=== PATIENT | female | born 1995 | race Two or more races ===

== ENCOUNTER 2018-06-03 21:59 | Emergency (ER) | payer SELFPAY ==
[2018-06-03] MEDS ORDERED: Sodium Chloride 0.9% 1,000 ML IV ONE (22:56)
[2018-06-03] MEDS ORDERED: Metoclopramide 10 MG/2 ML SDV IVPUSH ONE (22:56)
[2018-06-03] MEDS ORDERED: Ketorolac 30 MG/ML SDV IVPUSH ONE (22:56)
[2018-06-03] MEDS ORDERED: Aluminum Hydroxide/Magnesium Hydroxide Susp 30 ML Cup PO STA (22:57)
[2018-06-03] MEDS ORDERED: Lidocaine 2% Viscous Solution 15 ML Cup PO ONE (22:58)
--- NOTE | 2018-06-03 23:02 | EDM.PDOC ---
ED HPI GENERAL MEDICAL PROBLEM - General Stated Complaint: NAUSEA,FAINT,HEADACHE,ABD PAIN Time Seen by Provider: 06/03/18 22:35 Source of Information: Reports: Patient, Family History Limitations: Reports: No Limitations - History of Present Illness INITIAL COMMENTS - FREE TEXT/NARRATIVE: c/o epigastric pain x 2d 2d ago pt had epigastric pain and bloating, Gas X helped a little today with N, ate [employer] food for supper (FF, 3 chicken strips) and had inc 'd N, vomited later no f/c/d youngest is 3 yo, has had HAs since last , less than 1x qmo, usually takes APAP and ibuprofen - Related Data Allergies Allergy/AdvReac Type Severity Reaction Status Date / Time No Known Allergies Allergy Verified 06/03/18 23:28 Home Meds: Home Meds Metoclopramide HCl 10 mg PO Q6H PRN #10 tablet 06/03/18 [Rx] Omeprazole 20 mg PO DAILY #10 cap.sr 06/03/18 [Rx] ED ROS GENERAL - Review of Systems Review Of Systems: See Below Constitutional: Reports: No Symptoms HEENT: Reports: No Symptoms Respiratory: Reports: No Symptoms Cardiovascular: Reports: No Symptoms Endocrine: Reports: No Symptoms GI/Abdominal: Reports: No Symptoms : Reports: No Symptoms Musculoskeletal: Reports: No Symptoms Skin: Reports: No Symptoms Neurological: Reports: Headache Psychiatric: Reports: No Symptoms Hematologic/Lymphatic: Reports: No Symptoms Immunologic: Reports: No Symptoms ED EXAM, GENERAL - Physical Exam Exam: See Below Exam Limited By: No Limitations General Appearance: Alert, WD/WN, No Apparent Distress, Other (alert, conversant , overhead lights on, holding forehead in each hand) Eye Exam: Bilateral Eye: EOMI, Normal Inspection, PERRL Ears: Normal External Exam Nose: Normal Inspection, Normal Mucosa, No Blood Throat/Mouth: Normal Inspection, Normal Lips, Normal Teeth, Normal Gums, Normal Oropharynx, Normal Voice, No Airway Compromise Head: Atraumatic, Normocephalic Neck: Normal Inspection, Supple, Non-Tender, Full Range of Motion Respiratory/Chest: No Respiratory Distress, Lungs Clear, Normal Breath Sounds, No Accessory Muscle Use, Chest Non-Tender Cardiovascular: Regular Rate, Rhythm, No Edema, No Gallop, No JVD, No Murmur, No Rub GI/Abdominal: Soft, Non-Tender Back Exam: Normal Inspection, Full Range of Motion, NT Extremities: Normal Inspection, Normal Range of Motion, Non-Tender, No Pedal Edema Neurological: Alert, Oriented, CN II-XII Intact, Normal Cognition, No Motor/ Sensory Deficits Psychiatric: Normal Affect, Normal Mood Skin Exam: Warm, Dry, Intact, Normal Color, No Rash Lymphatic: No Adenopathy Course - Vital Signs Last Recorded V/S: Last Vital Signs Temp 36.8 C 06/03/18 22:20 Pulse 81 06/03/18 22:20 Resp 18 06/03/18 22:20 BP 106/66 06/03/18 22:20 Pulse Ox 100 06/03/18 22:20 - Orders/Labs/Meds Orders: Active Orders 24 hr Category Date Time Status Sodium Chloride 0.9% [Normal Saline] 1,000 ml Med 06/03/18 22:56 Ordered IV .BOLUS Medication Orders Sodium Chloride (Normal Saline) 1,000 mls @ 999 mls/hr IV .BOLUS ONE Stop: 06/03/18 23:56 Last Admin: 06/03/18 23:05 Dose: 999 mls/hr Meds: Medications Generic Name Dose Route Start Last Admin Trade Name Freq PRN Reason Stop Dose Admin Sodium Chloride 1,000 mls @ 999 mls/hr 06/03/18 22:56 06/03/18 23:05 Normal Saline IV 06/03/18 23:56 999 mls/hr .BOLUS ONE Administration Discontinued Medications Generic Name Dose Route Start Last Admin Trade Name Freq PRN Reason Stop Dose Admin Al Hydroxide/Mg Hydroxide 30 ml 06/03/18 22:57 06/03/18 23:12 Mag-Al Susp PO 06/03/18 22:58 30 ml NOW STA Administration Ketorolac Tromethamine 30 mg 06/03/18 22:56 06/03/18 23:12 Toradol IVPUSH 06/03/18 22:57 30 mg ONETIME ONE Administration Lidocaine HCl 15 ml 06/03/18 22:58 06/03/18 23:12 Xylocaine 2% Viscous PO 06/03/18 22:59 15 ml ONETIME ONE Administration Metoclopramide HCl 10 mg 06/03/18 22:56 06/03/18 23:12 Reglan IVPUSH 06/03/18 22:57 10 mg ONETIME ONE Administration - Re-Assessments/Exams Free Text/Narrative Re-Assessment/Exam: 06/03/18 23:41 feeling quite a bit better after NS, Toradol IV and Reglan IV. Pain down to 2/10 , N gone. Departure - Departure Time of Disposition: 23:41 Disposition: Home, Self-Care 01 Condition: Good Clinical Impression: Dyspepsia, Tension headache - Discharge Information *PRESCRIPTION DRUG MONITORING PROGRAM REVIEWED*: Not Applicable *COPY OF PRESCRIPTION DRUG MONITORING REPORT IN PATIENT YUVAL: Not Applicable Prescriptions: Metoclopramide HCl 10 mg PO Q6H PRN #10 tablet PRN Reason: Nausea Omeprazole 20 mg PO DAILY #10 cap.sr Instructions: Tension Headache, Adult, Gastroesophageal Reflux Disease, Adult Referrals: PCP,Not In Area [Primary Care Provider] - Additional Instructions: To decrease acid production, take omeprazole 20 mg 1 capsule daily for 10 days. To neutralize acid, take liquid antacid 30 ml 4 times a day for 2 days, then every 4 hours as needed. For nausea, take metoclopramide 10 mg 1 tab every 6 hours as needed. For headache, take ibuprofen 200 mg 3 tabs and acetaminophen 500 mg 2 tabs every 6 hours as needed. See your doctor in the next week. Call your Physician or Return to Emergency Department if: * Your condition worsens in any way. * You develop fever greater than 100.4. * You have vomitting that does not stop with medications. * You have pain that is not controlled with medications. - My Orders Last 24 Hours: My Active Orders 06/03/18 22:56 Sodium Chloride 0.9% [Normal Saline] 1,000 ml IV .BOLUS - Assessment/Plan Last 24 Hours: My Active Orders 06/03/18 22:56 Sodium Chloride 0.9% [Normal Saline] 1,000 ml IV .BOLUS
== END 2018-06-04 | disposition home or self-care (01) ==
LOC: FB.ED 21:59
DX: G44.209 Tension-type headache, unspecified, not intractable (principal); R10.13 Epigastric pain
CPT/HCPCS: 96361; 96374; 96375; 99283; 99284; A9270; J1885; J2765; J7030